=== PATIENT | female | born 1995 | race Caucasian/White ===

== ENCOUNTER 2017-09-24 14:20 | Emergency (ER) | payer BC ==
--- NOTE | 2017-09-24 14:51 | EDPHY ---
H & P Time Seen by Provider: 09/24/17 14:43 HPI/ROS: CHIEF COMPLAINT: Right thenar eminence pain HISTORY OF PRESENT ILLNESS: 21-year-old [id number] female complaining of right thenar eminence pain which has been occurring for the past 2 weeks after she started using a sledgehammer for prolonged period of time. She has reproducible pain and same location with palpation and prolonged movement or activity. No paresthesia. No sensory or motor deficit. No direct trauma or fall. PHYSICAL EXAM (Prior to examination, patient consented to physical exam, hands were washed and my usual and customary physical exam procedures followed) 1) GENERAL: Well-developed, well-nourished, alert and oriented. Appears to be in no acute distress. 2) HEAD: Normocephalic 3) HEENT: Pupils equal, round, reactive to light bilaterally. 4) LUNGS: Breathing comfortably. 5) MUSCULOSKELETAL: Normal coloration. Tender to palpation right thenar eminence. Soft compartments. Extension lap, flexion, abduction, abduction, opposition are all intact with no deficits. AP to hold all these against resistance with no deficits. Normal coloration. 6) SKIN: Intact 7) VASCULAR: pulses and cap refill present are brisk 8) NEUROLOGIC: Radial, ulnar, median nerve function intact with no deficits appreciated on exam DIFFERENTIAL DIAGNOSIS: in no particular order including but not limited to fracture, sprain, compartment syndrome Xray of the right hand interpreted by myself: no definitive acute osseous abnormality Procedure: Splint A Velcro thumb spica splint was applied by ER brain wave technician. After application of the splint I returned and re-examined the patient. The splint was adequately immobilizing the joint and distal to the splint the patient's circulation and sensation were intact. Patient shows no signs of compartment syndrome. Was given orthopedic precautions. Smoking Status: Never smoked Constitutional: Initial Vital Signs Temperature (C) 36.4 C 09/24/17 14:30 Heart Rate 65 09/24/17 14:30 Respiratory Rate 16 09/24/17 14:30 Blood Pressure 99/52 L 09/24/17 14:30 O2 Sat (%) 97 09/24/17 14:30 O2 Delivery Mode Room Air Allergies/Adverse Reactions: No Known Allergies Allergy (Unverified 09/24/17 14:29) Home Medications: Medication Instructions Recorded NK [No Known Home Meds] 09/24/17 MDM/Departure - MDM Imaging Results: Imaging Impressions Hand X-Ray 09/24/17 14:48 Impression: Negative. Consider directed ultrasound of the new lump. Images reviewed myself ED Course/Re-evaluation: Patient is concerned about "long-term damage"to her right hand. She has no neuro deficits on exam. She is tender to palpation right thenar eminence with soft compartments. She has no evidence of deep space infection or abscess or cellulitis to the right hand. No evidence of compartment syndrome of the hand. I recommend follow up with Hand surgery on-call Dr Fuchs. I do not think that more advanced imaging is indicated from the emergency department however this may be indicated on outpatient basis and this has been explained her. Placed in a Velcro thumb spica. Usual and customary orthopedic precautions and instructions provided. I saw this patient independently based on established practice protocols. Care of patient under supervision of secondary supervising physician Dr Coto . - Depart Disposition: Home, Routine, Self-Care Clinical Impression: Right hand pain Condition: Good Instructions: Hand Sprain (ED) Additional Instructions: Return to the ER immediately if you experience discoloration, have worsening pain, numbness, tingling, or any other symptoms that concern you. If you received x-rays in the emergency department today, be advised, that ligamentous , tendon, muscular, and other non-bony injury cannot be fully ruled out. Try to keep your affected extremity elevated above the level of your chest, and keep cold packs on the affected area, for the next 48 hours. Adult Pain & Fever Control: We recommend Acetaminophen (Tylenol) and Ibuprofen (Motrin,Advil) for pain and fever control. When fever is high or pain severe, both drugs can be used at the same time, but at different intervals. Please note the time differences. Your dose is: Acetaminophen 650mg every 4 to 6 hours Ibuprofen 600mg every 6 hours with food OR Note: do not take Acetaminophen with Hydrocodone (Vicodin, Lortab) or Oycodone (Percocet). These medications also contain Acetaminophen. No more than 3000mg of Acetaminophen should be taken in 24 hours (for an adult). Referrals: Miguel Fuchs MD [Medical Doctor] - 1-2 days without fail (Dr Fuchs is a hand surgeon)
[2017-09-24 15:28] VITALS: BP 102/60
== END 2017-09-24 15:29 | disposition home or self-care (01) ==
DX: M79.641 Pain in right hand (principal)
CPT/HCPCS: L3807